=== PATIENT | male | born 1985 | race Caucasian/White ===

== ENCOUNTER → 2018-05-16 10:59 | Outpatient (CLI) | payer BC, SELFPAY ==
[2018-05-16 12:47] LABS: Anion Gap 9 (5-15); BUN 12 mg/dL (7-18); BUN/Creat Ratio 11.2 RATIO (10-20); Calcium,Total 9.1 mg/dL (8.5-10.1); Chloride 107 mmol/L (98-107); Cholesterol 166 mg/dL (200); Creatinine, Serum 1.07 mg/dL (0.70-1.30); EST Glomerular Filtration Rate 85 mL/min (>60); Est Glom Filt Rate - Afr Amer 103 mL/min (>60); Glucose 78 mg/dL (74-106); High Density Lipoprotein 45 mg/dL; PSA,Total - Annual Screen 0.81 ng/mL (0.00-4.00); Potassium 3.7 mmol/L (3.5-5.1); Sodium Level 144 mmol/L (136-145); Triglycerides 105 mg/dL; Very Low Density Lipoprotein 21 mg/dL (5-40)
== END ==
PROVIDERS: Family Provider Family Medicine; PCP Family Medicine; Referring Provider Family Medicine; Visit Provider Family Medicine
DX: Z00.00 Encounter for general adult medical examination without abnormal findings (principal)
CPT/HCPCS: 36415; 80048; 80061; 84153; G0103

== ENCOUNTER → 2023-08-02 | Outpatient (CLI) | payer BC, SELFPAY ==
--- NOTE | 2023-08-02 12:35 | RAD_ITS ---
STUDY: X-RAY - CERVICAL SPINE REASON FOR EXAM: Male, 37 years old. Neck pain. TECHNIQUE: 7 view(s) of the cervical spine, including lateral flexion and extension views, were obtained. COMPARISON: None FINDINGS: Normal anterior atlantoaxial articulation. Normal odontoid process. Normal cervical lordosis. Normal vertebral bodies and endplates. Normal disc space heights. Limited flexion and extension with no abnormal motion. Normal vertebral foramina. The soft tissue structures are normal. RAD/Cerv Spine Obl/Flex/Ext Comp IMPRESSION: Limited flexion and extension with no abnormal motion. No other abnormality of the cervical spine. Electronically Signed: Jose Maria Rubin MD at 14:35 EDT ,
== END | disposition home or self-care (01) ==
LOC: MTRAD 12:33
PROVIDERS: PCP Family Medicine; Referring Provider Family Medicine; Visit Provider Family Medicine
DX: M54.2 Cervicalgia (principal)
CPT/HCPCS: 72052

== ENCOUNTER → 2024-03-07 | Outpatient (CLI) | payer BC, SELFPAY ==
--- NOTE | 2024-03-07 08:57 | RAD_ITS ---
STUDY: X-RAY - RIGHT HAND REASON FOR EXAM: Male, 38 years old. Right hand injury TECHNIQUE: 3 view(s) of the hand. COMPARISON: Comparison is made with prior study dated April 2012. FINDINGS: Normal radiocarpal articulation. Normal distal radioulnar joint. Normal visualized carpal bones. Normal carpal articulations Normal carpometacarpal articulation of the thumb. Normal second through fifth carpometacarpal joints. Normal metacarpi. Normal metacarpophalangeal joint of the thumb. Normal interphalangeal joint of the thumb. Normal proximal and distal phalanges of the thumb. Normal metacarpophalangeal joints of the second through fifth fingers. Normal proximal and distal interphalangeal joints of the second through fifth fingers. Normal phalanges of the second through fifth fingers. Soft tissue swelling. RAD/Hand Min 3 Views IMPRESSION: Soft tissue swelling. No fracture or dislocation. Electronically Signed: Michael Lacey MD at 9:39 EST ,
== END | disposition home or self-care (01) ==
PROVIDERS: PCP Family Medicine; Referring Provider Physician Assistant Surgical; Visit Provider Physician Assistant Surgical
DX: S60.221A Contusion of right hand, initial encounter (principal); X58.XXXA Exposure to other specified factors, initial encounter
CPT/HCPCS: 73130

== ENCOUNTER → 2024-05-19 | Outpatient (CLI) | payer BC, SELFPAY ==
--- NOTE | 2024-05-19 16:05 | MRI_ITS ---
PROCEDURE: Noncontrast MRI of the left shoulder. REASON FOR EXAM: Chronic left shoulder pain, greater than 20 years. Frequent dislocations. No history of left shoulder surgery. TECHNIQUE: Multiplanar, multisequence MRI images of the left shoulder were obtained without IV contrast. COMPARISON: None available FINDINGS There is flattening and subcortical cystic change/mild marrow edema of the posterolateral humeral head, favored to represent a Hill-Sachs lesion. No bony Bankart lesion is demonstrated. The distal subscapularis tendon is intact. Long head of the biceps tendon is normal in signal and location. Mild degenerative change of the left glenohumeral joint, without sizable effusion. No significant rotator cuff muscle atrophy. No acute fracture or dislocation of the left shoulder. No left axillary mass or adenopathy. Limited evaluation on the provided non-arthrographic images. No discrete tear of the posterior superior labrum on the provided images. Diminutive appearance of the anterior inferior labrum may be due to prior dislocation. Mild patchy areas of tendinopathy involving the otherwise intact distal infraspinatus and supraspinatus tendons. No retracted full-thickness rotator cuff tear. No significant fluid signal in the subacromial/subdeltoid bursa. MRI/Upper Ext Joint Only(Routine) IMPRESSION: No acute fracture or dislocation of the left shoulder. Hill-Sachs lesion posterolateral left humeral head, with underlying subcortical cystic change and mild marrow edema. No bony Bankart lesion is demonstrated. There is a diminutive appearance of th e anterior inferior labrum, which could be due to prior dislocation. Evaluation of the labrum is limited on this study and could be better evaluated with a direct MR arthrogram. Mild patchy tendinopathy of the otherwise intact distal infraspinatus and supra spinatus tendons. No significant fluid signal in the subdeltoid bursa. Reading Location: [facility]
--- NOTE | 2024-05-19 16:15 | RAD_ITS ---
PROCEDURE: ORBITS FOR FOREIGN BODY REASON FOR EXAM: MRI clearance. TECHNIQUE: 2 view(s) of the orbits. COMPARISON: None. FINDINGS: No evidence of displaced orbit fracture. No radiopaque foreign body. Visualized paranasal sinuses appear clear. RAD/Orbits for Foreign Body IMPRESSION: NEGATIVE ORBIT X-RAYS Reading Location: [id number]
== END | disposition home or self-care (01) ==
PROVIDERS: PCP Family Medicine; Referring Provider Family Medicine; Visit Provider Family Medicine
DX: M25.512 Pain in left shoulder (principal)
CPT/HCPCS: 70030; 73221

== ENCOUNTER → 2024-06-19 | Outpatient (CLI) | payer BC, SELFPAY ==
--- NOTE | 2024-06-19 18:56 | CT_ITS ---
PROCEDURE: EXTREMITY UPPER WITHOUT CONTRA 06/19/2024 REASON FOR EXAM: ASSESS BONY ANATOMY OF GLENOID, MULTIPLE DISLOCATI TECHNIQUE: Axial CT images of the left shoulder obtained without intravenous contrast. Coronal and Sagittal reconstruction series were provided. One or more dose reduction techniques were used (e.g., Automated exposure control, adjustment of the mA and/or kV according to patient size, use of iterative reconstruction technique RADIATION DOSE SUMMARY: CTDlvol: 24.65 mGy DLP: 494.31 mGycm COMPARISON: None FINDINGS: Bones: Unremarkable Joints: Unremarkable Soft Tissues: Unremarkable CT/Extremity Upper without Contra IMPRESSION: Unremarkable examination of the left shoulder joint. Reading Location: [facility]
== END | disposition home or self-care (01) ==
LOC: CT 18:55
PROVIDERS: PCP Family Medicine; Referring Provider Orthopaedic Surgery Sports Medicine; Visit Provider Orthopaedic Surgery Sports Medicine
DX: M25.312 Other instability, left shoulder (principal)
CPT/HCPCS: 73200

== ENCOUNTER 2025-01-27 10:30 | Outpatient (RCR) | payer BC, SELFPAY ==
--- NOTE | 2024-11-13 09:25 | HP.PTEVAL ---
Patient's Visit Information Visit Information Visit Information: ANTONIO ROBLES is a 39 year old M referred to Physical Therapy by MONTRELL AVILES with a diagnosis of L shoulder instability repair. DOS: 10/21/24. Date of Evaluation: 11/06/24 Physical Therapist: Moy Coleman DPT Visit Plan Frequency: 2x /Week Duration: 8 weeks Plan: Start with gentle PROM, Progress per protocol. May use MH/Ice as needed. Progress HEP as tolerated. Subjective Subjective: Pt. is here today for his initial evaluation with diagnosis of L shoulder instability repair. DOS: 10/21/24. Pt. arrives with use of sling today. Pt. reports still having marked pain, but is slowly improving. Pt. has been doing some elbow ROM exercises at home, but not much else. He is icing as directed. Pt. is sleeping in chair with decent tolerance. No N/T noted in L shoulder. Pt. reports no fever and no chest pain. 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 He is currently off work. He reports having multiple dislocations in the past and was getting to the point where he would move wrong and sublux. Pt. is hopeful to regain his ROm and strength in order to get back to all work and recreational activities without limitations. Pain L shoulder: Pain Intensity (Out of 10): 6 Pain Intensity Range: 2 and 6 Objective Objective: POSTURE: Pt. has L shoulder in guarded posture. PALPATION: Pt. has normal healing incisions. No signs of infection. NEURO: normal throughout. PROM: L shoulder: flexion 60deg, abd 20deg, ER at side 10deg. Normal L elbow ROM without increase in symptoms. MMT: R shoulder 5/5 throughout. L shoulder: did not test. Balance/Special Test Scores Quick DASH Score: 84.0900 Goals Goal 1:: LTG: Pt. to be I with HEP. Goal Time Frame: 4-6 Weeks Goal 2:: LTG: Pt. to have increased PROM of L shoulder to full without increase in symptoms. Goal Time Frame: 4-6 Weeks Goal 3:: STG: Pt. to sleep without increase in L shoulder pain. Goal Time Frame: 2-4 Weeks Goal 4:: LTG: pt. to have full AROM of L shoulder without increase in symptoms. Goal Time Frame: 6-8 Weeks Goal 5:: LTG: Pt. to have increased L shoulder strength symmetrical to R side. Goal Time Frame: 8-12 Weeks Rehabilitation Potential Physical Therapy Diagnosis: Pt. has signs and symptoms consistent with L shoulder instability repair. DOS: 10/21/24. Pt. has marked hypomobility, increased pain, marked weakness. He would benefit from PT to address the above limitations progressing to all previous levels of activity. Rehabilitation Potential: Excellent Anticipated Interventions Patient/Client Instruction: Educate patient on: Condition, Plan of Care, Risk Factors and Benefits of Fitness Program For the Purpose of:: To facilitate caregiver knowledge, To improve self management, To prevent re-injury, To improve ability to perform tasks related to life management and To improve tolerance to ADL's Therapeutic Exercise to Include: Strength training, Power training, Postural training, Flexibilty training, Passive ROM, Active ROM and Scapular Strength/Stabilization For the Purpose of:: To decrease pain, To decrease swelling/inflammation, To increase ROM, To improve nutrient delivery to tissue, To increase oxygenation perfusion, To improve health of tissue, To decrease soft tissue restriction and To increase flexibility/ROM Manual Therapy Techniques to Include: Mobilization, Passive ROM and Soft tissue mobilization For the Purpose of:: To decrease pain, To decrease swelling/inflammation, To increase ROM, To improve nutrient delivery to tissue, To increase oxygenation perfusion and To improve muscle performance and motor function Cryotherapy (ice pack, ice massage): Yes Ultrasound (thermal/non thermal): Yes For the Purpose of:: To decrease pain, To decrease swelling/inflammation and To increase ROM Text: Thank you for the opportunity to evaluate your patient. For Medicare and Medicare HMO plans, please review the plan of care and approve it. It will need to be FAXED BACK to us at [phone] for Medicare purposes. For Medicare only, by signing this I certify the plan of care. Please let me know if there are questions or concerns regarding this plan of care. Physician Signature: Date:
== END 2025-01-27 19:00 | disposition home or self-care (01) ==
LOC: PT 10:30
PROVIDERS: PCP Family Medicine
DX: Z47.89 Encounter for other orthopedic aftercare; M25.312 Other instability, left shoulder
CPT/HCPCS: 97110; 97140; 97161; 97530